=== PATIENT | female | born 1970 | race African-American/Black ===

== ENCOUNTER → 2017-02-19 | Outpatient (CLI) | payer OTHER ==
[2017-02-19] VITALS (8 sets, daily range): BP systolic 109–135; BP diastolic 52–82
[~2017-02-19] VITALS: Ht 162.6 cm; Wt 70.8 kg
[~2017-02-19] MED LIST: MULT-15 PO
[2017-02-19 09:05] LABS: HEMATOCRIT 22.8 % (36.0-47.0)
[2017-02-19 09:08] LABS: HEMOGLOBIN 6.1 g/dL (12.0-15.5)
== END | disposition home or self-care (01) ==
LOC: OPS 08:03
PROVIDERS: ATTEND Internal Medicine
DX: E61.1 Iron deficiency (principal)
CPT/HCPCS: 36415; 85014; 85018; 86850; 86900; 86901; 86920; P9016; 36430

== ENCOUNTER → 2017-07-25 | Outpatient (CLI) | payer OTHER ==
[2017-02-19 15:03] VITALS: BP 128/74
[~2017-07-25] MED LIST changes: +FERR-26 PO
[2017-07-25 14:55] LABS: BASO % 1 % (0-3); EOS % 1 % (0-3); HEMATOCRIT 34.5 % (36.0-47.0); HEMOGLOBIN 10.7 g/dL (12.0-15.5); LYMPH # 0.9 x10^3/uL (1.0-4.8); LYMPH % 12 % (24-48); MEAN CORPUSCULAR HEMOGLOBIN 25 pg (25-35); MEAN CORPUSCULAR HGB CONC 31 g/dL (31-37); MEAN CORPUSCULAR VOLUME 81 fL (79-100); MONO % 7 % (0-9); NEUT % 79 % (31-73); PLATELET COUNT 365 x10^3/uL (140-400); RED BLOOD COUNT 4.28 x10^6/uL (3.50-5.40); RED CELL DISTRIBUTION WIDTH 24.7 % (11.5-14.5); WHITE BLOOD COUNT 7.4 x10^3/uL (4.0-11.0)
[2017-07-25 15:05] LABS: CALCIUM 9.7 mg/dL (8.5-10.1); CREATININE 0.6 mg/dL (0.6-1.0); GFR 129.7; POTASSIUM 3.8 mmol/L (3.5-5.1)
[2017-07-25 15:45] LABS: ANISOCYTOSIS MOD; PLT ESTIMATE ADEQUATE (ADEQUATE)
[2017-07-25 15:46] LABS: OVALOCYTES FEW; POIKILOCYTOSIS SLIGHT
== END | disposition home or self-care (01) ==
LOC: SURGPAT 14:29
PROVIDERS: ATTEND Obstetrics & Gynecology
DX: Z01.818 Encounter for other preprocedural examination (principal); Z90.710 Acquired absence of both cervix and uterus
CPT/HCPCS: 36415; 80048; 85025

== ENCOUNTER 2017-08-01 05:57 | Inpatient (IN) | payer OTHER ==
[~2017-08-01] VITALS: Ht 152.4 cm; Wt 71.7 kg
[2017-08-01] VITALS (8 sets, daily range): BP systolic 147–173; BP diastolic 72–97
[~2017-08-01 05:57] MED LIST changes: +BUPIVACAINE-EPI 0.5%-1:200000 50 ML VIAL. ONE
[2017-08-01] MEDS ORDERED: fentaNYL PF VIAL 100 MCG/2 ML VIAL IV PRN (07:00)
[2017-08-01] MEDS ORDERED: MORPHINE SULFATE 2 MG/ML DISP.SYRIN. IV PRN (07:00)
[2017-08-01] MEDS ORDERED: IV RINGERS,LACTATED 1000ML 1,000 ML IV SCH (07:00)
[2017-08-01] MEDS ORDERED: ONDANSETRON PF 4 MG/2 ML VIAL. IV PRN ×2 (07:00→09:30)
[2017-08-01] MEDS ORDERED: LIDOCAINE 1% PF 2 ML VIAL. ID PRN (07:00)
[2017-08-01] MEDS ORDERED: PROCHLORPERAZINE 10 MG/2 ML VIAL. IV PRN (07:00)
[2017-08-01] MEDS ORDERED: PROPOFOL 20 ML IV ONE (07:05)
[2017-08-01] MEDS ORDERED: fentaNYL PF VIAL 100 MCG/2 ML VIAL ONE (07:06)
[2017-08-01] MEDS ORDERED: MIDAZOLAM HCL/PF 2 MG/2 ML VIAL. ONE (07:06)
[2017-08-01] MEDS ORDERED: ONDANSETRON PF 4 MG/2 ML VIAL. ONE (07:07)
[2017-08-01] MEDS ORDERED: DEXAMETHASONE SOD PHOS 20 MG/5 ML VIAL. ONE (07:07)
[2017-08-01] MEDS ORDERED: LIDOCAINE 2% PF Vial for OR 5 ML VIAL. ONE (07:09)
[2017-08-01 07:10] LABS: NEG OBC UR NEG; POS OBC UR POS
[2017-08-01] MEDS ORDERED: ROCURONIUM 100 MG/10 ML VIAL. ONE (07:12)
[2017-08-01] MEDS ORDERED: SUCCINYLCHOLINE 200 MG/10 ML VIAL. ONE (07:13)
[2017-08-01] MEDS ORDERED: ESMOLOL 100 MG/10 ML VIAL. IV ONE (07:46)
[2017-08-01] MEDS ORDERED: GLYCOPYRROLATE 1 MG/5 ML VIAL. ONE (07:58)
[2017-08-01] MEDS ORDERED: NEOSTIGMINE 10 MG/10 ML VIAL. ONE (07:58)
[2017-08-01] MEDS ORDERED: PHENYLEPHRINE in 0.9% NACL PF 1 MG/10 ML DISP.SYRIN. IV ONE (08:03)
[2017-08-01] MEDS ORDERED: MORPHINE SULFATE 10 MG/ML VIAL. ONE (08:33)
--- NOTE | 2017-08-01 09:23 | PDOC ---
BRIEF OPERATIVE NOTE Date: Aug 01, 2017 Pre-Op Diagnosis menorrhagia, metrorrhagia, dysmenorrhea, fibroids, anemia Post-Op Diagnosis same Procedure Performed teresa and bilateral salpingectomy Surgeon Miguel Russian History Professor Aroldo Anesthesiologist [place] Anesthesia Type: General Blood Loss 400cc IV Fluid see anesthesia report Urine Output 100cc- clear Specimens Obtained uterus, bilateral tubes Findings see dictation Complications none JOURDAN ROONEY MD Aug 01, 2017 09:23
[2017-08-01] MEDS ORDERED: METOCLOPRAMIDE HCL 10 MG/2 ML VIAL. IV PRN (09:30)
[2017-08-01] MEDS ORDERED: KETOROLAC 30 MG/ML INJ. IV PRN (09:30)
[2017-08-01] MEDS ORDERED: HYDROmorphone 2 MG/ML VIAL IV PRN (09:30)
[2017-08-01] MEDS ORDERED: diphenhydrAMINE HCL 25 MG CAPSULE PO PRN (09:30)
[2017-08-01] MEDS ORDERED: ALBUTEROL SULFATE 2.5 MG/3 ML NEBU. NEB PRN (09:30)
[2017-08-01] MEDS ORDERED: CALCIUM CARBONATE 500 MG TAB.CHEW PO PRN (09:30)
[2017-08-01] MEDS ORDERED: diphenhydrAMINE 50 MG/ML VIAL IV PRN (09:30)
[2017-08-01] MEDS ORDERED: BISACODYL 10 MG SUPP.RECT. PR PRN (09:30)
[2017-08-01] MEDS: fentaNYL PF VIAL 100 MCG/2 ML VIAL IV PRN ×2 (09:30→10:07)
[2017-08-01] MEDS ORDERED: MAG HYDROX/ALUMINUM HYD/SIMETH 30 ML ORAL.SUSP PO PRN (09:30)
[2017-08-01] MEDS ORDERED: HYDROcodone/APAP 5/325MG 1 TAB TABLET PO PRN (09:30)
[2017-08-01] MEDS ORDERED: 0.9 % SODIUM CHLORIDE 10 ML DISP.SYRIN. IV PRN (09:30)
[2017-08-01] MEDS ORDERED: ZOLPIDEM 5 MG TABLET. PO PRN (09:30)
[2017-08-01] MEDS ORDERED: HYDROmorphone 2 MG/ML VIAL IM PRN (09:30)
[2017-08-01] MEDS ORDERED: NALOXONE 0.4 MG/ML VIAL. IV PRN (09:30)
[2017-08-01] MEDS ORDERED: LACTULOSE 20 GM/30 ML SOLUTION. PO PRN (09:30)
[2017-08-01] MEDS: HYDROmorphone 2 MG/ML VIAL IV PRN ×2 (09:43→09:57)
[2017-08-01] MEDS ORDERED: IRON POLYSACCHARIDE COMPLEX 150 MG CAPSULE PO SCH (11:00)
[2017-08-01] MEDS: IBUPROFEN 600 MG TABLET. PO PRN (21:22)
[2017-08-01] MEDS: oxyCODONE/APAP 5/325 1 TAB TABLET PO PRN (21:22)
[2017-08-02 01:05] VITALS: BP 123/77
[2017-08-02] MEDS: IBUPROFEN 600 MG TABLET. PO PRN ×3 (05:41→19:22)
[2017-08-02] MEDS: oxyCODONE/APAP 5/325 1 TAB TABLET PO PRN ×2 (05:42→19:22)
[2017-08-02 05:53] VITALS: BP 147/83
[2017-08-02 07:11] LABS: CALCIUM 8.6 mg/dL (8.5-10.1); CREATININE 0.7 mg/dL (0.6-1.0); GFR 108.5; POTASSIUM 3.8 mmol/L (3.5-5.1)
[2017-08-02 07:45] VITALS: BP 138/87
--- NOTE | 2017-08-02 07:54 | PDOC ---
SURGICAL PROGRESS NOTE Subjective doing well. Voiding and ambulating. Taking po meds Vital Signs Vital Signs Date Time Temp Pulse Resp B/P (MAP) Pulse Ox O2 Delivery O2 Flow Rate FiO2 08/02/17 05:53 98.8 94 18 147/83 (104) 98 Room Air 98.8 08/01/17 15:00 2.0 PATIENT HAS A CARSON: No General: Alert, Oriented X3, Cooperative, No acute distress HEENT: Mucous membr. moist/pink Lungs: Clear to auscultation, Normal air movement Heart: Regular rate, Normal S1, Normal S2, No murmurs Abdomen: Normal bowel sounds, Soft, No tenderness, No hepatosplenomegaly, No masses, Other (Incision c/d/i) Extremities: No clubbing, No cyanosis, No edema, Normal pulses, No tenderness/ swelling Labs Laboratory Tests Test 08/01/17 07:00 08/01/17 12:20 08/02/17 06:05 Urine Test Negative (NEG) Hematocrit 39.8 % (36.0-47.0) 34.4 % (36.0-47.0) Sodium Level 136 mmol/L (136-145) Potassium Level 3.8 mmol/L (3.5-5.1) Chloride Level 103 mmol/L (98-107) Carbon Dioxide Level 27 mmol/L (21-32) Anion Gap 6 (6-14) Blood Urea Nitrogen 6 mg/dL (7-20) Creatinine 0.7 mg/dL (0.6-1.0) Estimated GFR (Cockcroft-Gault) 108.5 Glucose Level 116 mg/dL (70-99) Calcium Level 8.6 mg/dL (8.5-10.1) Laboratory Tests Test 08/01/17 12:20 08/02/17 06:05 Hematocrit 39.8 % (36.0-47.0) 34.4 % (36.0-47.0) Sodium Level 136 mmol/L (136-145) Potassium Level 3.8 mmol/L (3.5-5.1) Chloride Level 103 mmol/L (98-107) Carbon Dioxide Level 27 mmol/L (21-32) Anion Gap 6 (6-14) Blood Urea Nitrogen 6 mg/dL (7-20) Creatinine 0.7 mg/dL (0.6-1.0) Estimated GFR (Cockcroft-Gault) 108.5 Glucose Level 116 mg/dL (70-99) Calcium Level 8.6 mg/dL (8.5-10.1) Assessment/Plan POD #[address] [facility] . Doing well. Today, will advance diet and ambulation. Problems: JOURDAN ROONEY MD Aug 02, 2017 07:54
[2017-08-02] MEDS: SIMETHICONE 80 MG TAB.CHEW PO PRN ×2 (09:55→17:30)
--- NOTE | 2017-08-02 12:33 | OP ---
DATE OF SURGERY: PREOPERATIVE DIAGNOSES: Menorrhagia, metrorrhagia, dysmenorrhea, anemia, and enlarged uterine fibroids. POSTOPERATIVE DIAGNOSES: Menorrhagia, metrorrhagia, dysmenorrhea, anemia, enlarged uterine fibroids. PROCEDURE: YVETTE and bilateral salpingectomy. SURGEONS: Brandy Rooney MD and Dr. Kendrick. ANESTHESIA: General. ESTIMATED BLOOD LOSS: 400 mL URINE OUTPUT: Please see the anesthesia summary. INTRAVENOUS FLUIDS: Please see anesthesia summary. DESCRIPTION OF PROCEDURE: After informed consent was obtained, the patient was taken to the operating room and given a smooth induction of anesthesia without complications. She was placed supine on the table and her abdomen, perineum, and vagina were prepped and draped in usual sterile fashion. A Pfannenstiel incision was made 2 fingerbreadths above the pubic bone with the knife. This was carried down to the subcutaneous fat. The fascia was incised bilaterally using Corrigan scissors and extended laterally. We then elevated the fascia, both superiorly and inferiorly off the rectus muscles using sharp dissection. The muscles were in the midline and the peritoneum was entered sharply. The uterus was noted to be very enlarged, it actually measured about 38 cm when I did a fundal height in the office, so it went all the way up to her upper abdomen. We were able to manipulate the uterus through the Pfannenstiel incision and bring it up through the pelvis. We then proceeded to tie up the round ligaments bilaterally. These were transected and then a bladder flap was created sharply with Metzenbaum scissors and the bladder was retracted and we were able to elevate the tube off of the ovaries bilaterally. The mesosalpinx of the tube was cauterized with the Bovie. We were then able to create a window in the medial leaf for the broad ligament. We placed two Shivani clamps over the uteroovarian ligaments and transected the ovary from the uterus on both sides. The ovary was tied off with 2 Shivani transfixion sutures. We then proceeded to clamp, cut and ligate the branches of the uterine artery, going all the way down to the cervix. The patient had very vascular tissue, but we did not have any excessive bleeding. Once we got to the cervix, the vagina was entered. We then cut around the top of the vagina with a Sadie scissors and removed the cervix, uterus and tubes in total. This was passed off for pathology. We then closed the vagina with interrupted sutures, first with an angle stitch on each corner of the vagina. We then placed interrupted exungy-qy-unbrl sutures in the middle. Good hemostasis was noted. We then irrigated the pelvis. No bleeding was noted. We then allowed the bowel to fall back into its natural position. We never packed the bowel, we just held it back with our hands and the uterus helped to hold the bowel back out of the way. Once the irrigation was done, no bleeding was noted. We did spray some Josefina on the raw surfaces for hemostasis. We then allowed the bowel to fall back to its natural position. The fascia was then closed with running nonlocking suture of 0 Vicryl. The subcutaneous tissue was irrigated and the subcutaneous stitch of 3-0 Vicryl was used to close the space. We then closed the skin with shane. The patient tolerated the procedure well. There were no complications. BRANDY ROONEY MD DR: MAIK/drake JOB#: [id number] / [id number]
[2017-08-02] MEDS ORDERED: FLU VACC QS2017-18 (36MOS+)/PF 0.5 ML SYRINGE. VAX IM ONE (18:30)
[2017-08-02 22:00] VITALS: BP 115/70
[2017-08-03] MEDS: oxyCODONE/APAP 5/325 1 TAB TABLET PO PRN ×2 (00:57→09:12)
[2017-08-03] MEDS: IBUPROFEN 600 MG TABLET. PO PRN ×2 (00:57→09:13)
[2017-08-03 05:30] VITALS: BP 134/78
--- NOTE | 2017-08-03 10:34 | PDOC ---
SURGICAL PROGRESS NOTE Subjective Pt is doing well. Ambulating, passing gas (no BM yet), tolerating diet and pain meds (po). No bleeding Vital Signs Vital Signs Date Time Temp Pulse Resp B/P (MAP) Pulse Ox O2 Delivery O2 Flow Rate FiO2 08/03/17 05:30 98.5 79 20 134/78 (96) 99 Room Air 98.5 PATIENT HAS A CARSON: No General: Alert, Oriented X3, Cooperative, No acute distress HEENT: Mucous membr. moist/pink Lungs: Clear to auscultation, Normal air movement Heart: Regular rate, Normal S1, Normal S2, No murmurs Abdomen: Normal bowel sounds, Soft, No tenderness, No hepatosplenomegaly, No masses, Other (incisions C/D/i) Extremities: No clubbing, No cyanosis, No edema, Normal pulses, No tenderness/ swelling Skin: No rashes, No breakdown, No significant lesion Labs Laboratory Tests Test 08/01/17 12:20 08/02/17 06:05 Hematocrit 39.8 % (36.0-47.0) 34.4 % (36.0-47.0) Sodium Level 136 mmol/L (136-145) Potassium Level 3.8 mmol/L (3.5-5.1) Chloride Level 103 mmol/L (98-107) Carbon Dioxide Level 27 mmol/L (21-32) Anion Gap 6 (6-14) Blood Urea Nitrogen 6 mg/dL (7-20) Creatinine 0.7 mg/dL (0.6-1.0) Estimated GFR (Cockcroft-Gault) 108.5 Glucose Level 116 mg/dL (70-99) Calcium Level 8.6 mg/dL (8.5-10.1) I have reviewed the following vitals, PE Assessment/Plan POD # 2 from [facility] and bilateral salpingectomy for fibroids. Plan discharge today Problems: JOURDAN ROONEY MD Aug 03, 2017 10:34
--- NOTE | 2017-08-03 10:35 | DISCH ---
DISCHARGE INSTRUCTIONS Condition on Discharge Condition on Discharge: Stable Activity After Discharge Activity Instructions for Disc: Avoid exertion, Progressive ambulation Exercise Instruction after Dis: Progress as tolerated Driving Instructions after Dis: No driving for 2 weeks Weight Bearing Status after Di: As tolerated Diet after Discharge Diet after Discharge: Regular Wound Incision Care Wound/Incision Care: May get incision wet Contacting the DRL[facility] after DC Call your doctor for: If your condition worsens Follow-Up Follow up with: Dr. Rooney in 1 week JOURDAN ROONEY MD Aug 03, 2017 10:35
--- NOTE | 2017-08-03 10:39 | PDOC3 ---
Discharge Summary Visit Information Date of Admission: Aug 01, 2017 Date of Discharge: Aug 03, 2017 Admitting Diagnosis: Fibroids, menorrhagia, anemia, uterine enlargement Final Diagnosis same Brief Hospital Course Allergies Allergies Coded Allergies Type Severity Reaction Last Updated Verified No Known Drug Allergies 08/01/17 No Vital Signs Vital Signs Date Time Temp Pulse Resp B/P (MAP) Pulse Ox O2 Delivery O2 Flow Rate FiO2 08/03/17 05:30 98.5 79 20 134/78 (96) 99 Room Air 98.5 Lab Results Laboratory Tests Test 08/01/17 12:20 08/02/17 06:05 Hematocrit 39.8 % (36.0-47.0) 34.4 % (36.0-47.0) Sodium Level 136 mmol/L (136-145) Potassium Level 3.8 mmol/L (3.5-5.1) Chloride Level 103 mmol/L (98-107) Carbon Dioxide Level 27 mmol/L (21-32) Anion Gap 6 (6-14) Blood Urea Nitrogen 6 mg/dL (7-20) Creatinine 0.7 mg/dL (0.6-1.0) Estimated GFR (Cockcroft-Gault) 108.5 Glucose Level 116 mg/dL (70-99) Calcium Level 8.6 mg/dL (8.5-10.1) Brief Hospital Course Ms. Cabrera is a 47 old female who presented with a history of anemia caused by menorrhagia and uterine fibroids. She presented on the for hysterectomy. She underwent YVETTE and bilateral salpingectomy without incident. Today she is tolerating her diet, ambulating, tolerating her pain meds and wishes to go home. She will continue on her iron. Her post op Hct is 34 (preop was 36). Discharge Information Scheduled Ferrous Sulfate (Ferrous Sulfate), 1 TAB PO BID, (Reported) Miscellaneous Medications Multivitamins With Iron (Daily Multivitamin With Iron), 1 EACH PO, (Reported) Patient Instructions Patient Instructions See list JOURDAN ROONEY MD Aug 03, 2017 10:39
[2017-08-03 11:31] VITALS: BP 118/75
--- NOTE | 2017-08-03 12:15 | PATHOLOGY ---
PATHOLOGY REPORT * * * * * * * * FINAL DIAGNOSIS: Uterus and bilateral fallopian tubes, hysterectomy and bilateral salpingectomy: - Cervix with mild chronic inflammation, squamous metaplasia, and Nabothian cysts. - Proliferative phase endometrium. - Myometrium with leiomyomata, multiple (0.3 to 15.0 cm) with focal areas of degeneration and necrosis. - Serosal surface with no pathologic diagnosis. - Right and left fallopian tubes with no significant histopathologic diagnosis. (SKM:geovanna; 08/03/2017) REPORT ELECTRONICALLY SIGNED BY: Rossy Villaseñor M.D. DATE/TIME: 08/03/2017 12:14 * * * * * * * * GROSS PATHOLOGY: The specimen is received in formalin, labeled "Cabrera, Radha, uterus, cervix and bilateral tubes" is a markedly enlarged/distorted corpus with bilateral attached fallopian tube segments and separate cervix having a combined weight of 1949 g. The corpus measures 23.0 x 16.0 x 10.5 cm. The serosa is studded by multiple subserosal and pedunculated nodules ranging in size from 0.7 cm to 4.7 cm. Elsewhere, the serosa is smooth to roughened, pink, pinzon, hemorrhagic, and well vascularized. The laterality of the fallopian tubes is indeterminate. The corpus is sectioned. The distortion is due to multiple intramural and subserosal nodules. The intramural nodules range in size from 0.3 cm to 15.0 cm in greatest dimension. All nodules demonstrate solid whorled white cut surfaces with no gross evidence of hemorrhage, cystic degeneration, or calcifications. The largest intramural nodule shows infarcted regions measuring up to 2.3 cm in greatest dimension. The endometrial cavity is markedly compressed, distorted and measures 12.0 x 9.0 cm. The endometrium is homogeneous pinzon and ranges in thickness from 0.1 cm to 0.3 cm. No endometrial cavity lesions are identified. The cervix measures 4.7 cm in length with diameter ranging from 1.7 cm to 2.5 cm. The ectocervical mucosa is glistening and pinzon. The external os measures 0.2 cm in diameter. The squamocolumnar junction is moderately demarcated and the endocervical mucosa is grossly unremarkable. The first fallopian tube segment measures 3.2 x 0.5 cm and is nonfimbriated. The second fimbriated tube measures 5.2 x 0.5 cm. The serosa of each tube is glistening and pink. Sectioning each reveals no gross lesions. Group Billing Coordinator sections are submitted A1-A14. A1-A2 cervix A3-A5 endomyometrium A6-A12 serosal and intramural nodules, paper sales representative A13 shorter fallopian tube, paper sales representative A14 longer fimbriated fallopian tube, paper sales representative (MARISSA; 08/01/2017) INITIAL CPT CODE(S): A; 09716 Professional services [place] [facility] [place] [address] Technical services performed by [facility] at [address] [place] [address], [address] [address]. SPECIMEN(S) RECEIVED: A.Uterus, cervix, bilateral tubes CLINICAL HISTORY: Fibroids, anemia, dysmenorrhea, metrorrhagia, menorrhagia PATIENT: RADHA CABRERA /AGE: 705/05/1970 (Age: 47) PATIENT #: [id number] ALT CASE #: SPECIMEN COLLECTION DATE: 08/01/2017 SPECIMEN RECEIVED DATE: 08/01/2017 [facility] - [address] [place] [address] - PHONE: [phone] * * * END OF REPORT * * *
== END 2017-08-03 14:15 | disposition home or self-care (01) | DRG 743 ==
LOC: OPSVCIP 05:57 → EDSTATUS 07:30 → 3 NORTH 09:24
PROVIDERS: ADMIT Obstetrics & Gynecology; ATTEND Obstetrics & Gynecology
PROC: 0UT70ZZ Resection of Bilateral Fallopian Tubes, Open Approach (ICD-10-PCS; principal; 2017-08-02)
PROC: 0UT90ZZ Resection of Uterus, Open Approach (ICD-10-PCS; 2017-08-02)
PROC: 0UTC0ZZ Resection of Cervix, Open Approach (ICD-10-PCS; 2017-08-02)
DX: D25.9 Leiomyoma of uterus, unspecified (principal); D64.9 Anemia, unspecified; N92.0 Excessive and frequent menstruation with regular cycle; N92.1 Excessive and frequent menstruation with irregular cycle; N94.6 Dysmenorrhea, unspecified
CPT/HCPCS: 36415; 80048; 81025; 85014; 86850; 86900; 86901; 88307; 90686; J0330; J0690; J0780; J1100; J1170; J1885; J2250; J2270; J2370; J2405; J2704; J2710; J3010; J3490; J7120; Q0163; J2001

== ENCOUNTER → 2017-10-24 | Outpatient (CLI) | payer OTHER ==
[~2017-10-24] MED LIST changes: -BUPIVACAINE-EPI 0.5%-1:200000 50 ML VIAL. ONE
--- NOTE | 2017-10-24 16:28 | KCIC ---
DATE: October 24, 2017 EXAM: MAMMO TRISTEN SCREENING BILATERAL HISTORY: Routine Screening COMPARISON: None TECHNIQUE: Routine digital mammographic views were obtained. This study was interpreted with the benefit of Computerized Aided Detection (CAD). The breast parenchyma is heterogeneously dense, which could reduce sensitivity of mammography. Breast parenchyma level C. FINDINGS: There are no suspicious findings. IMPRESSION: Negative examination. BI-RADS CATEGORY: 1 NEGATIVE RECOMMENDED FOLLOW-UP: 12M 12 MONTH FOLLOW-UP PQRS compliance statement: Patient information was entered into a reminder system with a target due date for the next mammogram. Mammography is a sensitive method for finding small breast cancers, but it does not detect them all and is not a substitute for careful clinical examination. A negative mammogram does not negate a clinically suspicious finding and should not result in delay in biopsying a clinically suspicious abnormality. "Our facility is accredited by the [employer] Mammography Program."
== END | disposition home or self-care (01) ==
LOC: KCIC MAMMO 14:56
PROVIDERS: ATTEND Internal Medicine
DX: Z12.31 Encounter for screening mammogram for malignant neoplasm of breast (principal)
CPT/HCPCS: 77063; G0202; 77067

== ENCOUNTER → 2018-10-30 | Outpatient (CLI) | payer OTHER ==
[~2018-10-30] MED LIST changes: -FERR-26 PO; +FERR325T14 PO
--- NOTE | 2018-10-30 16:47 | KCIC ---
Bilateral digital screening mammograms with 3-D tomosynthesis: Reason for examination: Routine screening. Comparison is made to previous study dated 10/24/2017. Bilateral mammograms in CC and oblique projections were obtained with 2-D imaging and 3-D tomosynthesis imaging on a Siemens Inspiration unit and reviewed on the workstation. Interpretation was made with the benefit of CAD. The skin and nipples show no abnormalities. No abnormal axillary lymph nodes are seen. The breast parenchyma is heterogeneously dense. (Breast density: Category C.) There are no dominant masses, suspicious calcifications or architectural distortion. Benign calcifications are present. Impression: No evidence of malignancy. Recommend routine screening. Your patient's mammogram demonstrates that she has dense breast tissue (breast density category C or D), which could hide abnormalities, and if she has other risk factors for breast cancer that have been identified, she might benefit from supplemental screening tests that may be suggested by you as her ordering physician. Dense breast tissue, in and of itself, is a relatively common condition. Therefore, this information is not provided to cause undue concern, but rather to raise your awareness and to promote discussion with your patient regarding the presence of other risk factors, in addition to dense breast tissue. Your patient's mammography results will be sent to her. BI-RAD Category 2: Benign. "Our facility is accredited by the [employer] Mammography Program." This patient's information has been entered into a reminder system for the patient to be notified with the results of her examination and a target date for the next mammogram. Electronically signed by: Enma Butt MD (10/30/2018 4:42 PM) [id number]
== END | disposition home or self-care (01) ==
LOC: KCIC MAMMO 15:24
PROVIDERS: ATTEND Internal Medicine
DX: Z12.31 Encounter for screening mammogram for malignant neoplasm of breast (principal)
CPT/HCPCS: 77063; 77067

== ENCOUNTER → 2019-10-31 | Outpatient (CLI) | payer OTHER ==
--- NOTE | 2019-11-07 16:38 | KCIC ---
BILATERAL SCREENING MAMMOGRAM, 3-D History: Routine screening. Comparison: Bilateral mammogram 10/30/2018. Technique: MLO and CC digital tomosynthesis (3D) images obtained. Radiologist reviewed these images on dedicated workstation. Findings: Breast Tissue Density C : The breasts are heterogeneously dense, which may obscure small masses. There are no dominant masses, suspicious microcalcifications, or architectural distortion. IMPRESSION: No mammographic evidence of malignancy. Recommend routine screening. BI-RADS category 1: Negative. The images were reviewed with computer-aided detection. Patient information is entered into reminder system with a target due date for the next screening mammogram. Mammography is the most sensitive method for finding small breast cancers, but it does not detect them all and is not a substitute for careful clinical examination. A negative mammogram does not negate a clinically suspicious finding and should not result in delay in biopsying a clinically suspicious abnormality. "Our facility is accredited by the [employer] Mammography Program." Electronically signed by: Jay Kevin MD (11/07/2019 4:35 PM) [email or web address]
== END | disposition home or self-care (01) ==
LOC: KCIC MAMMO 10:15
PROVIDERS: ATTEND Internal Medicine
DX: Z12.31 Encounter for screening mammogram for malignant neoplasm of breast (principal); N64.89 Other specified disorders of breast
CPT/HCPCS: 77063; 77067

== ENCOUNTER → 2020-11-02 | Outpatient (CLI) | payer OTHER ==
--- NOTE | 2020-11-02 13:19 | KCIC ---
EXAM: Bilateral digital screening mammogram with tomosynthesis. HISTORY: 50-year-old female presents for screening mammography. TECHNIQUE: Full-field digital craniocaudal and mediolateral oblique 2D and 3D tomosynthesis images of both breasts are obtained for evaluation. Computer aided detection was applied. COMPARISON: 10/31/2019 and 10/30/2018 BREAST PARENCHYMAL DENSITY: Level B - Scattered fibroglandular densities. FINDINGS: There is no new suspicious mass, microcalcification or region of architectural distortion. There are stable areas of asymmetry and nodularity within both breasts. IMPRESSION: BI-RADS Category 2: Benign finding(s). RECOMMENDATION: Annual mammography is recommended. If your mammogram demonstrates that you have dense breast tissue, which could hide abnormalities, and if you have other risk factors for breast cancer that have been identified, you might benefit from s upplemental screening tests that may be suggested by your ordering physician. Dense breast tissue, i n and of itself, is a relatively common condition. This information is not provided to cause undue c oncern, but rather to raise your awareness and to promote discussion with your physician regarding th e presence of other risk factors, in addition to dense breast tissue. A report of your mammography re sults will be sent to you and your physician. You should contact your physician if you have any ques tions or concerns regarding this report. Mammography is a sensitive method for finding small breast cancers, but it does not detect them all a nd is not a substitute for careful clinical examination. A negative mammogram does not negate a clin ically suspicious finding and should not result in delay in biopsying a clinically suspicious abnorma lity. PQRS compliance statement - Patient information was entered into a reminder system with a target due date for the next mammogram. "Our facility is accredited by the [employer] Mammography Program." Electronically signed by: Estefani Hurt MD (11/02/2020 1:17 PM) [email or web address]
== END ==
LOC: KCIC MAMMO 12:27
PROVIDERS: ATTEND Internal Medicine
DX: Z12.31 Encounter for screening mammogram for malignant neoplasm of breast (principal)
CPT/HCPCS: 77063; 77067

== ENCOUNTER → 2021-12-02 | Outpatient (CLI) | payer OTHER ==
--- NOTE | 2021-12-02 12:56 | KCIC ---
Digital bilateral screening mammogram with tomography dated 12/02/2021. INDICATION: 51 years of age asymptomatic female patient presents for screening mammography. Screening TECHNIQUE: Full field craniocaudal and mediolateral oblique images of both breasts were obtained usi ng digital technique with tomosynthesis and also analyzed with computer-aided detection software. . COMPARISON: 11/02/2020 10/31/2019. BREAST COMPOSITION: Category C: The breast tissue is heterogeneously dense, which could obscure detec tion of small masses. FINDINGS: No suspicious mass or clustered microcalcification. Parenchymal pattern is stable. No architectural d istortion. IMPRESSION: Stable bilateral mammogram RECOMMENDATION: Annual screening mammography is recommended, unless clinically indicated sooner based on symptoms or change in physical exam. BIRADS 1: NEGATIVE This study was interpreted with the benefit of Computerized Aided Detection (CAD). Recommend routine screening in one year. Patient information is entered into the reminder system with a target due date for the next screening mammogram. Mammography is the most sensitive method for finding small breast cancers, but it does not detect the m all and is not a substitute for careful clinical examination. A negative mammogram does not negate a clinically suspicious finding and should not result in delay in biopsying a clinically suspicious a bnormality. "Our facility is accredited by the [employer] Mammography Program." Electronically signed by: Jerrod Conti MD (12/02/2021 12:53 PM) [email or web address]
== END ==
LOC: KCIC MAMMO 11:14
PROVIDERS: ATTEND Internal Medicine
DX: Z12.31 Encounter for screening mammogram for malignant neoplasm of breast (principal)
CPT/HCPCS: 77063; 77067